=== PATIENT | male | born 1995 | race Caucasian/White ===

== ENCOUNTER 2021-01-17 05:52 | Emergency (ER) | payer BC, OTHER ==
[~2021-01-17] VITALS: Ht 188 cm; Wt 104.5 kg
--- NOTE | 2021-01-17 05:54 | PHYS DOC ---
Past History Past Medical History: Other (UNIQUE MARTINES MD) Past Surgical History: Other (UNIQUE MARTINES MD) Smoking: Cigarettes, Less than 1pk/day Alcohol Use: Occasionally Drug Use: None (UNIQUE MARTINES MD) General Adult HPI: HPI: Patient is a 25 year old male who presents with above hx and complaints of numbness in feet. (UNIQUE MARTINES MD) HPI: Patient 25-year-old male who presents with low back pain. Pain started when bending over this morning. Was taking his dog out around 2 AM when this began. Pain is in his low back on both sides. Right slightly worse than left. States that he has slight numbness/tingling sensation going into both legs, but denies any true sensory deficits. Denies any weakness. No bowel/bladder incontinence. No fever/chills. No history of IVDU. No history of malignancy. No previous back surgeries. No immunosuppressive medications. (ZENON GONZALEZ MD) Review of Systems: Review of Systems: Constitutional: Denies fever or chills Eyes: Denies change in visual acuity HENT: Denies nasal congestion or sore throat Respiratory: Denies cough or shortness of breath Cardiovascular: Denies chest pain or edema GI: Denies abdominal pain, nausea, vomiting, bloody stools or diarrhea : Denies dysuria Musculoskeletal: Denies back pain or joint pain Integument: Denies rash Neurologic: Denies headache, focal weakness or sensory changes Endocrine: Denies polyuria or polydipsia Lymphatic: Denies swollen glands Psychiatric: Denies depression or anxiety (UNIQUE MARTINES MD) Review of Systems: Fourteen system , review of systems has been reviewed. See HPI for pertinent positives and negative responses, other christianson all other systems are negative, non pertinent or non contributory (ZENON GONZALZE MD) Family History: Family History: No pertinent family history (ZENON GONZALEZ MD) Allergies: Allergies: Allergies Coded Allergies Type Severity Reaction Last Updated Verified Sulfa (Sulfonamide Antibiotics) Allergy Unknown 11/04/13 Yes (UNIQUE MARTINES MD) Physical Exam: PE: Constitutional: Well developed, well nourished, no acute distress, non-toxic appearance. [] HENT: Normocephalic, atraumatic, bilateral external ears normal, oropharynx moist, no oral exudates, nose normal. [] Eyes: PERRLA, EOMI, conjunctiva normal, no discharge. [] Neck: Normal range of motion, no tenderness, supple, no stridor. [] Cardiovascular:Heart rate regular rhythm, no murmur [] Lungs & Thorax: Bilateral breath sounds clear to auscultation [] Abdomen: Bowel sounds normal, soft, no tenderness, no masses, no pulsatile masses. [] Skin: Warm, dry, no erythema, no rash. [] Back: No tenderness, no CVA tenderness. [] Extremities: No tenderness, no cyanosis, no clubbing, ROM intact, no edema. [] Neurologic: Alert and oriented X 3, normal motor function, normal sensory function, no focal deficits noted. [] Psychologic: Affect normal, judgement normal, mood normal. [] (UNIQUE MARTINES MD) PE: General: Sitting in chair. Comfortable appearing. No acute distress. HEENT: Normocephalic atraumatic. Cardiovascular: Regular rate. No peripheral edema. Respiratory: Normal work of breathing. No accessory muscle usage. Extremity: Chronic upper extremity deformity. Lower extremities deformity. Well perfused. Pulses 2+ distally. Neuro: Alert, oriented, speech normal. Specifically 5/5 strength bilaterally in: L1-4: adduction of thighs L3-4: extension at knee L4-5: dorsiflexion of ankle L5: Extension of toes S1-S2: Plantarflexion of ankle Sensation grossly normal/equal in bilateral lower extremities. Back: No midline spinal tenderness. No CVA tenderness. Psych: Normal mood and affect (ZENON GONZALEZ MD) EKG: EKG: [] (UNIQUE MARTINES MD) Radiology/Procedures: Radiology/Procedures: [] (UNIQUE MARTINES MD) Radiology/Procedures: NA (ZENON GONZALEZ MD) Heart Score: Risk Factors: Risk Factors: DM, Current or recent (<one month) smoker, HTN, HLP, family history of CAD, obesity. Risk Scores: Score 0 - 3: 2.5% MACE over next 6 weeks - Discharge Home Score 4 - 6: 20.3% MACE over next 6 weeks - Admit for Clinical Observation Score 7 - 10: 72.7% MACE over next 6 weeks - Early Invasive Strategies (UNIQUE MARTINES MD) C/O Chest Pain: N/A (ZENON GONZALEZ MD) Course & Med Decision Making: Course & Med Decision Making Pertinent Labs and Imaging studies reviewed. (See chart for details) [] (UNIQUE MARTINES MD) Course & Med Decision Making Patient 25-year-old male who presents with bilateral lower back pain after bending over this morning. See HPI for history. Negative for red flag symptoms. Motor and sensory intact on examination. No signs of cauda equina. Do not feel that he requires emergent imaging/MRI of his back. Will treat with 5-day burst of prednisone. Patient will follow up with his PCP. Discussed return precautions including saddle anesthesia, bowel/bladder incontinence, worsening numbness, or weakness in his legs. He understands these symptoms would constitute an emergency. 06 (ZENON GONZALEZ MD) Dragon Disclaimer: Dragon Disclaimer: This electronic medical record was generated, in whole or in part, using a voice recognition dictation system. (UNIQUE MARTINES MD) Departure Departure: Impression: Primary Impression: Lumbar back pain Disposition: HOME / SELF CARE / HOMELESS Condition: STABLE Referrals: PCP,NO (PCP) Schedule an appt with your PCP Additional Instructions: Your history and exam are reassuring against a serious problem. Please rest and ice your back. You can take an anti-inflammatory medication called prednisone once daily for 5 days. Please follow-up with your primary care doctor to ensure your symptoms are improving. If you have fever/chills, worsening numbness in your legs, numbness in your groin area, bowel/bladder incontinence or difficulty, or new weakness in your legs you need to present to an emergency department immediately for reevaluation. Scripts Prednisone (PREDNISONE) 50 Mg Tablet 50 MG PO DAILY for back pain for 5 Days, #5 TAB Prov: ZENON GONZALEZ MD 01/17/21 Dragon Disclaimer This chart was dictated in whole or in part using Voice Recognition software in a busy, high-work load, and often noisy Emergency Department environment. It may contain unintended and wholly unrecognized errors or omissions. (UNIQUE MARTINES MD) UNIQUE MARTINES MD Jan 17, 2021 05:54 ZENON GONZALEZ MD Jan 17, 2021 06:23
[2021-01-17 06:01] VITALS: BP 113/77
[2021-01-17] MEDS ORDERED: PRED50TA PO (06:23)
== END 2021-01-17 06:31 | disposition home or self-care (01) ==
LOC: ER 05:52
DX: M54.5 Low back pain (principal); F17.210 Nicotine dependence, cigarettes, uncomplicated; Z88.2 Allergy status to sulfonamides
CPT/HCPCS: 99283